=== PATIENT | male | born 1965 | race African-American/Black ===

== ENCOUNTER 2023-07-04 12:21 | Outpatient (AMB) | payer OTHER, SELFPAY ==
[2023-07-04 12:35] VITALS: BMI 35.1
--- NOTE | 2023-07-04 12:35 | A.OFFVIS_ITS ---
Intake VS Expanded 07/04/23 12:35 07/04/23 12:43 Height 5 ft 10 in 5 ft 10 in Weight 244 lb 11.41 oz 245 lb BMI 35.1 35.2 Intake Visit Reasons: Obesity/CONFIRMED HPI Nutrition Presentation Details Pt presents for MNT for obesity. The Pt was referred by PCP, Dr. Jillian Vernon from [facility] Pt was 236 lbs in 10/2022. Pt reports working on diet modifications but trying different methods. Pt reports looking for consistent diet modification ideas. Reports trying fasting/eating 2 meals day other 3 meals a day. Eats out couple of times a week. Working on exercise routine. Reports working on reducing beverages with sugar and drinking more water denies ETOH/SMoking ELZ-Biqqzfv-Ql.Jeor Equation Height 5 ft 10 in Weight 245 lb Resting Metabolic Rate 1950.92 Calculated Activity Level Mild Activity Calories Needed to Maintain Weight 2682.52 Diagnosis Nutrition problem #1 overweight/obesity As related to (etiology) #1 lack of nutrit education As evidenced by (sign/symptom) #1 high BMI (35.2 on 06/2023) and knowledge deficit of diet Monitoring/Goals Nutrition problem monitoring level of knowledge/skill and weight Nutrition goal/outcome wt loss 5lbs in 2 months Outcome progress verbalized understanding Learning/Education Readiness to learn good Stages of change preparation Educational materials provided Yes (meal planning) Most Recent Diabetes Results: No Data to Display Assessment & Plan Assessment & Plan (1) Obesity (BMI 30-39.9): Code(s): E66.9 - Obesity, unspecified Plan: Wt: 111 Kg ( 07/04/23 ) Est kcal needs as per MSJ: 2782 (40% carb, 30% protein/fat) Est fluid needs as per 25-30 ml/d: 3340 ml/d Est prot per day as per 1 g/kg bw: 111 Recommend fiber intake : 8-10 g per day and gradually increase to 25-28 g per day for women and 35-38 g for men or as tolerated Recommend sodium intake per day : less than 2000 mg Educated patient on: ( R = reviewed V = verbalizes understanding N/R = needs review N/A = not applicable * Food sources of carbohydrate, adequate serving sizes and its role in various health conditions: R * Differences between complex carbohydrates a simple carbohydrates, role of fibe r in diet: R * Lean protein sources of foods: R * Differences between types of fats and role in diet (mono on saturated fat fatty acids, saturated fatty acids, trans fats): N/R * Food sources of sodium in salt and healthy modifications for heart health in kidney health: NR * Vitamins and minerals: N/R * Healthy plate method concept: R * Physical activity: Benefits a precaution: N/R * Patient Instructions: Work on having 3 balanced meals per day , aim at reducing total carbs to less than 90 g at meal time following healthy plate method Work on reducing sugar in beverages, have a fruit instead and drink water with meals and snacks see meal plan ideas Coding Level of Care Code Nutr Indiv Intake (46613) Diagnoses Obesity (BMI 30-39.9) E66.9 Time Spent (min) 30
[2023-07-04 12:43] VITALS: BMI 35.2
== END 2023-07-04 13:03 | disposition home or self-care (01) ==
PROVIDERS: PCP Internal Medicine Cardiovascular Disease; Visit Provider Dietitian, Registered
DX: E66.9 Obesity, unspecified (principal)

== ENCOUNTER → 2023-07-04 12:21 | Outpatient (BNVA) | payer OTHER, SELFPAY | PROVIDERS: PCP Internal Medicine Cardiovascular Disease; Visit Provider Dietitian, Registered | DX: E66.9 Obesity, unspecified (principal); Z68.35 Body mass index [BMI] 35.0-35.9, adult | CPT/HCPCS: 97802 ==